=== PATIENT | male | born 1985 | race Two or more races ===

== ENCOUNTER 2018-10-22 21:36 | Emergency (ER) | payer OTHER ==
[~2018-10-22] VITALS: Ht 182.9 cm; Wt 79.4 kg
--- NOTE | 2018-10-22 21:45 | NUR ---
ED Nurse Note: Patient walked into ED c/o right lower leg calf pain/injury due to injury today around 1200. patient does not have a visible injury.
--- NOTE | 2018-10-22 21:57 | Emergency Room Report ---
History of Present Illness General Chief Complaint: Lower Extremity Injury Source: Patient Present Illness HPI Is a 32-year-old male with no past medical history. He presents with chief complaint of right calf pain. He was running across the street doing an errand at work. He said he felt a pop to his calf area. Since then is been achy and hurting. Pain is 7 out of 10. Worse with walking and pushing off. No swelling. No fever chills but no bruising. No other trauma. Allergies: Coded Allergies: AMOXICILLIN (Verified Allergy, Unknown, 10/22/18) Patient History Past Medical History: none, see triage record, old chart reviewed Past Surgical History: none Pertinent Family History: none Social History: Denies: smoking Immunizations: other Reviewed Nursing Documentation: PMH: Agreed; PSxH: Agreed Nursing Documentation-PM Past Medical History: No History, Except For Hx Asthma: Yes Review of Systems Eye: Denies: eye pain, blurred vision ENT: Denies: ear pain, nose congestion, throat swelling Respiratory: Denies: cough, shortness of breath Cardiovascular: Denies: chest pain, palpitations Gastrointestinal: Denies: abdominal pain, diarrhea, nausea, vomiting Musculoskeletal: Reports: muscle pain; Denies: back pain, joint pain Skin: Denies: rash Neurological: Denies: headache, numbness Endocrine: Denies: increased thirst, increased urine Hematologic/Lymphatic: Denies: easy bruising All Other Systems: negative except mentioned in HPI Physical Exam Vital Signs Date Time Temp Pulse Resp B/P (MAP) Pulse Ox O2 Delivery O2 Flow Rate FiO2 10/22/18 21:39 97.5 50 22 153/92 (112) 100 Room Air Vitals with high blood pressure Sp02 EP Interpretation: reviewed, normal General Appearance: well appearing, no apparent distress, alert Head: normocephalic, atraumatic Eyes: bilateral eye PERRL, bilateral eye EOMI ENT: hearing grossly normal, normal pharynx Neck: full range of motion, supple, no meningismus Respiratory: chest non-tender, lungs clear, normal breath sounds Cardiovascular #1: regular rate, rhythm, no murmur Gastrointestinal: normal bowel sounds, non tender, no mass, no organomegaly, no bruit, non-distended Musculoskeletal: back normal, gait/station normal, normal range of motion, other - Right calf: Mild tenderness to the distal aspect of the calf. No ecchymosis. No Achilles tendon tenderness. Neg Main test. Psychiatric: mood/affect normal Medical Decision Making Diagnostic Impression: Primary Impression: Strain of calf muscle Qualified Codes: S86.811A - Strain of other muscle(s) and tendon(s) at lower leg level, right leg, initial encounter ER Course This patient presents with soft tissue injury to the calf. No fracture. No complete tear. No DVT. Will discharge home. CT/MRI/US Diagnostic Results CT/MRI/US Diagnostic Results : Imaging Test Ordered: Ultrasound right lower extremity Impression Neg per operations liaison Last Vital Signs Date Time Temp Pulse Resp B/P (MAP) Pulse Ox O2 Delivery O2 Flow Rate FiO2 10/22/18 21:39 97.5 50 22 153/92 (112) 100 Room Air Status: improved Disposition: HOME, SELF-CARE Condition: Stable Scripts Ibuprofen* (MOTRIN*) 600 Mg Tablet 600 MG ORAL THREE TIMES A DAY, #30 TAB 0 Refills Prov: Narinder Pringle MD 10/22/18 Additional Instructions: Follow-up Workmen's Comp. doctor within 7 days. Return if symptoms worsen. Narinder Pringle MD Oct 22, 2018 21:57
--- NOTE | 2018-10-22 22:12 | NUR ---
ED Nurse Note: patient taken to [facility]
--- NOTE | 2018-10-22 22:36 | NUR ---
ED Nurse Note: patient came from [facility]
--- NOTE | 2018-10-22 22:43 | Diagnostic Imaging Report ---
Indication: Right lower extremity pain and swelling. Technique: Duplex Doppler imaging performed from the right common femoral vein to the popliteal vein. FINDINGS: Normal compressibility demonstrated from the common femoral vein to the popliteal vein. Respiratory phasicity and good augmentation demonstrated on waveform analysis. There is no evidence of thrombosis. IMPRESSION: No evidence of deep venous thrombosis within right the lower extremity.
[2018-10-22] MEDS ORDERED: IBUPROFEN600 MG ORAL (22:46)
[2018-10-22 22:52] VITALS: BP 153/92
--- NOTE | 2018-10-22 22:52 | NUR ---
ER DISCHARGE NOTE: Patient is cleared to be discharged per ERMD DR. POPE, pt is aox4, on room air, with stable vital signs. pt was given dc and prescription instructions, pt was able to verbalize understanding, pt id band removed without complications. pt is able to ambulate with steady gait. pt took all belongings.
== END 2018-10-22 22:52 | disposition home or self-care (01) ==
LOC: EMR 22:15
DX: S86.811A Strain of other muscle(s) and tendon(s) at lower leg level, right leg, initial encounter (principal); X58.XXXA Exposure to other specified factors, initial encounter; Y92.410 Unspecified street and highway as the place of occurrence of the external cause; Z88.0 Allergy status to penicillin
CPT/HCPCS: 93971; 99284